=== PATIENT | male | born 1930 | race Caucasian/White ===

== ENCOUNTER → 2016-12-20 | Outpatient (CLI) | payer MEDICARE, BC, OTHER | LOC: MW.CHNEURO 08:28 → MW.CHFP 08:28 | PROVIDERS: ATTEND Emergency Medicine | DX: E78.5 Hyperlipidemia, unspecified (principal); I10 Essential (primary) hypertension; I63.9 Cerebral infarction, unspecified | CPT/HCPCS: 36415; 80061; 82550; 84460 ==

== ENCOUNTER → 2016-12-23 | Outpatient (CLI) | payer MEDICARE, BC, OTHER | LOC: MW.CHFP 14:03 | PROVIDERS: ATTEND Emergency Medicine | DX: I10 Essential (primary) hypertension (principal); R45.1 Restlessness and agitation; F05 Delirium due to known physiological condition; F32.9 Major depressive disorder, single episode, unspecified; H61.22 Impacted cerumen, left ear | CPT/HCPCS: 36415; 69210; 80048; 81001; 85027; G0463 ==

== ENCOUNTER → 2017-01-17 | Outpatient (CLI) | payer MEDICARE, BC, OTHER | LOC: MW.CHNEURO 08:00 | PROVIDERS: ATTEND Psychiatry & Neurology Neuromuscular Medicine | DX: G31.83 Neurocognitive disorder with Lewy bodies (principal); F02.80 Dementia in other diseases classified elsewhere, unspecified severity, without behavioral disturbance, psychotic disturbance, mood disturbance, and anxiety; M54.17 Radiculopathy, lumbosacral region | CPT/HCPCS: 99214 ==

== ENCOUNTER 2017-02-17 13:08 | Emergency (ER) | payer MEDICARE, BC, OTHER ==
[2017-02-17] MEDS ORDERED: Sodium Chloride 0.9% 10 ML Syringe FLUSH PRN (13:32)
[2017-02-17] MEDS ORDERED: Sodium Chloride 0.9% 2.5 ML Syringe FLUSH PRN (13:32)
[2017-02-17] MEDS ORDERED: Diltiazem 25 MG/5 ML SDV IVPUSH ONE (13:33)
--- NOTE | 2017-02-17 13:37 | EDM.PDOC ---
ED HPI GENERAL MEDICAL PROBLEM - General Chief Complaint: Cardiovascular Problem Stated Complaint: CLINIC PT Time Seen by Provider: 02/17/17 13:31 - History of Present Illness INITIAL COMMENTS - FREE TEXT/NARRATIVE: HISTORY AND PHYSICAL: History of present illness: The patient is an 86 rolled male with a history of hypertension dyslipidemia Lewy Body dementia carotid stenosis GERD lumbar spinal stenosis with lumbosacral radiculopathy prostate cancer stroke and prediabetic who presents from family practice clinic and Dr. Alanis with an elevated heart rate. According to the history the patient woke this morning and said to his family he wasn't feeling well and just had generalized weakness. He denies any chest pain shortness of breath focal neurologic changes and was not dizzy or lightheaded. They were walking with him and the daughter who is a family doctor noted that he had a rapid pulse and he said he felt somewhat lightheaded. The clinic was called to get him in for an evaluation and he was seen in the clinic and EKG there which showed a tachycardia with a right bundle branch block and some nonspecific ST-T wave changes with a rate of 147. In my research of the computer I could not find an old EKG and according to the family and the patient they are not sure if he has ever had one. Labs were done as an outpatient which included CBC BMP and troponin which have been reviewed by me. The patient was sent to the ED for IV medications and admission. Currently on my evaluation the patient is denying all systemic complaints such as chest pain shortness of breath abdominal pain nausea vomiting neck or back pain headache or focal extremity weakness or pain. The patient is not a very good historian as he has the dementia. Review of systems: As per history of present illness and below otherwise all systems reviewed and negative. Past medical history: As per history of present illness and as reviewed below otherwise noncontributory. Surgical history: As per history of present illness and as reviewed below otherwise noncontributory. Social history: No reported history of drug or alcohol abuse. Family history: As per history of present illness and as reviewed below otherwise noncontributory. Physical exam: Gen.: Well-developed well-nourished man who is nontoxic and speaking clearly in the ED but is confused. Vital signs been noted by me. He is moving all extremities spontaneously HEENT: Atraumatic, normocephalic, pupils reactive, negative for conjunctival pallor or scleral icterus, mucous membranes moist, throat clear, neck supple, nontender, trachea midline. Lungs: Clear to auscultation, breath sounds equal bilaterally, chest nontender. No worker breathing or sensory muscle use Heart: S1S2, regular rhythm but tachycardic rate, negative for clicks, rubs, or JVD. Abdomen: Soft, nondistended, nontender. Negative for masses or hepatosplenomegaly. Negative for costovertebral tenderness. Pelvis: Stable nontender. Genitourinary: Deferred. Rectal: Deferred. Extremities: Atraumatic, negative for cords or calf pain. Neurovascular unremarkable. No pedal edema or leg asymmetry Neuro: Awake, alert, oriented. Cranial nerves II through XII unremarkable. Cerebellum unremarkable. Motor and sensory unremarkable throughout. Exam nonfocal. Diagnostics: EKG was performed in the clinic, CBC BMP and troponin will performed in the clinic and results were reviewed by me, INR UA and chest x-ray will be performed in the ED; repeat EKG and troponin Therapeutics: IV O2 monitor gentle IV fluids Please note that I asked the nurse to draw up a small dose of Lopressor in an effort to slow the patient's heart rate down and get a better look at the underlying rhythm and prior to us being able to do that the patient converted his rhythm to a regular rhythm rate of 70s. I did discuss this with the primary care provider as well as the family and we will continue with our observation and management and plan for admission. 1345: Case was discussed with our hospitalist who will see the patient and plan for observation admission. 1515: Second troponin level was discussed with the patient and daughter as well as our hospitalist. He is in route to have a dialogue with the family about the best approach to this patient. The concern that the family has that the patient gets very confused with his dementia and sundowning and becomes very agitated so they would like to avoid the patient being placed in a new environment with this admission. Please also note that the clinic was able to find an old EKG that was performed in 2007; this did not show any right bundle branch block or any tachycardia. 1545: Dr Pittman has spoken with the patient and family at bedside at length and they preferred to defer admission to follow the troponin and to monitor his rhythm. They will prefer to go home and follow-up with Dr. Vera. I've given him a prescription for a Holter monitor to be placed on Monday and that they will be called for a follow-up appointment with Dr. Vera. will be doing a consult , but the family understands risks and benefits of admission versus going home and accepts all the possible risks of going home Impression: Episode of arrhythmia resolves spontaneously, elevated troponin asymptomatic stable Definitive disposition and diagnosis as appropriate pending reevaluation and review of above. - Related Data Allergies Allergy/AdvReac Type Severity Reaction Status Date / Time No Known Allergies Allergy Verified 02/17/17 13:24 Home Meds: Home Meds Aspirin [Gely Chewable] 81 mg PO DAILY 02/23/14 [History] Omeprazole 20 mg PO DAILY 02/23/14 [History] Rosuvastatin [Crestor] 5 mg PO ASDIRECTED 02/23/14 [History] Cholecalciferol (Vitamin D3) [Vitamin D3] 1,000 units PO DAILY 06/10/15 [History ] Moexipril/Hydrochlorothiazide [Moexipril-HCTZ 15-25 MG] 1 each PO DAILY [History] Rivastigmine [Exelon] 9.5 mg TRDERM DAILY 06/10/15 [History] Clobetasol [Clobetasol Propionate 0.05%] 30 gm TOP BID 02/17/17 [History] Latanoprost [Xalatan 0.005% Ophth Soln] 2.5 ml EYEBOTH BEDTIME 02/17/17 [History ] Past Medical History - Past Health History Medical/Surgical History: Denies Medical/Surgical History HEENT History: Reports: None Cardiovascular History: Reports: High Cholesterol, Hypertension, Other (See Below) Other Cardiovascular History: carotid stenosis Respiratory History: Reports: None Gastrointestinal History: Reports: None Genitourinary History: Reports: None Musculoskeletal History: Reports: None Neurological History: Reports: Other (See Below) Other Neuro History: Lewy Body Dementia Psychiatric History: Reports: Other (See Below) Other Psychiatric History: Lewy Body Dementia Endocrine/Metabolic History: Reports: None Hematologic History: Reports: None Immunologic History: Reports: None Oncologic (Cancer) History: Reports: None Dermatologic History: Reports: None - Infectious Disease History Infectious Disease History: Reports: Chicken Pox - Past Surgical History Cardiovascular Surgical History: Reports: Carotid Stents Social & Family History - Family History Family Medical History: Noncontributory - Tobacco Use Smoking Status *Q: Never Smoker Years of Tobacco use: 15 - Alcohol Use Days Per Week of Alcohol Use: 4 Number of Drinks Per Day: 4 Total Drinks Per Week: 16 - Recreational Drug Use Recreational Drug Use: No Drug Use in Last 12 Months: No ED ROS GENERAL - Review of Systems Review Of Systems: ROS reveals no pertinent complaints other than HPI. ED EXAM, GENERAL - Physical Exam Exam: See Below (See dictation) Course - Vital Signs Last Recorded V/S: Last Vital Signs Temp 36.3 C 02/17/17 13:24 Pulse 139 H 02/17/17 13:24 Resp 18 02/17/17 14:09 BP 99/65 02/17/17 14:09 Pulse Ox 98 02/17/17 14:09 - Orders/Labs/Meds Orders: Active Orders 24 hr Category Date Time Status Cardiac Monitoring [RC] . DIRECTED Care 02/17/17 13:31 Active EKG Documentation Completion [RC] STAT Care 02/17/17 13:52 Active Notify Provider Consults [RC] ASDIRECTED Care 02/17/17 15:43 Ordered Oxygen Therapy, ED [RC] ASDIRECTED Care 02/17/17 13:31 Active Pulse Oximetry [RC] ASDIRECTED Care 02/17/17 13:31 Active Consult to Physician [CONS] Stat Cons 02/17/17 15:41 Ordered Chest 1V Frontal [CR] Stat Exams 02/17/17 13:32 Taken Sodium Chloride 0.9% [Normal Saline] 1,000 ml Med 02/17/17 13:45 Active IV STAT Sodium Chloride 0.9% [Saline Flush] Med 02/17/17 13:32 Active 10 ml FLUSH ASDIRECTED PRN Sodium Chloride 0.9% [Saline Flush] Med 02/17/17 13:32 Active 2.5 ml FLUSH ASDIRECTED PRN Saline Lock Insert [OM.PC] Stat Oth 02/17/17 13:31 Ordered Medication Orders Sodium Chloride (Normal Saline) 1,000 mls @ 50 mls/hr IV STAT ANNALEE Last Infusion: 02/17/17 13:58 Dose: 50 mls/hr Admin: 02/17/17 13:45 Dose: 999 mls/hr Sodium Chloride (Saline Flush) 10 ml FLUSH ASDIRECTED PRN PRN Reason: Keep Vein Open Sodium Chloride (Saline Flush) 2.5 ml FLUSH ASDIRECTED PRN PRN Reason: Keep Vein Open Labs: Laboratory Tests 02/17/17 02/17/17 Range/Units 13:03 14:25 INR 0.96 (0.86-1.11) Troponin I 0.31 H* (0.0-0.29) NG/ML Meds: Medications Generic Name Dose Route Start Last Admin Trade Name Freq PRN Reason Stop Dose Admin Sodium Chloride 1,000 mls @ 50 mls/hr 02/17/17 13:45 02/17/17 13:58 Normal Saline IV 50 mls/hr STAT ANNALEE Infusion Sodium Chloride 10 ml 02/17/17 13:32 Saline Flush FLUSH ASDIRECTED PRN Keep Vein Open Sodium Chloride 2.5 ml 02/17/17 13:32 Saline Flush FLUSH ASDIRECTED PRN Keep Vein Open Discontinued Medications Generic Name Dose Route Start Last Admin Trade Name Freq PRN Reason Stop Dose Admin Diltiazem HCl 5 mg 02/17/17 13:33 02/17/17 14:01 Diltiazem IVPUSH 02/17/17 13:34 Not Given ONETIME ONE Metoprolol Tartrate 5 mg 02/17/17 13:40 02/17/17 14:01 Lopressor IVPUSH 02/17/17 13:41 Not Given ONETIME ONE Departure - Departure Time of Disposition: 15:57 Disposition: Home, Self-Care 01 Condition: Good Clinical Impression: Elevated troponin Arrhythmia Qualifiers: Arrhythmia type: unspecified cardiac arrhythmia Qualified Code(s): I49.9 - Cardiac arrhythmia, unspecified Forms: ED Department Discharge Additional Instructions: The following information is given to patients seen in the emergency department who are being discharged to home. This information is to outline your options for follow-up care. We provide all patients seen in our emergency department with a follow-up referral. The need for follow-up, as well as the timing and circumstances, are variable depending upon the specifics of your emergency department visit. If you don't have a primary care physician on staff, we will provide you with a referral. We always advise you to contact your personal physician following an emergency department visit to inform them of the circumstance of the visit and for follow-up with them and/or the need for any referrals to a consulting specialist. The emergency department will also refer you to a specialist when appropriate. This referral assures that you have the opportunity for followup care with a specialist. All of these measure are taken in an effort to provide you with optimal care, which includes your followup. Under all circumstances we always encourage you to contact your private physician who remains a resource for coordinating your care. When calling for followup care, please make the office aware that this follow-up is from your recent emergency room visit. If for any reason you are refused follow-up, please contact the [facility] emergency department at and ask to speak to the emergency department charge nurse. [facility] Primary care- Internal Medicine and Family [address] [address] Please go and have a Holter monitor placed on Monday as we discussed. Will be contacted by the clinic for follow-up appointment with Dr. Vera but if you do not hear from them please call the clinic and get an appointment for early next week. Return to ER as needed and as discussed in please take one baby aspirin daily until you are followed up with the clinic. - My Orders Last 24 Hours: My Active Orders 02/17/17 13:31 Cardiac Monitoring [RC] . DIRECTED Oxygen Therapy, ED [RC] ASDIRECTED Pulse Oximetry [RC] ASDIRECTED Saline Lock Insert [OM.PC] Stat 02/17/17 13:32 Chest 1V Frontal [CR] Stat Sodium Chloride 0.9% [Saline Flush] 10 ml FLUSH ASDIRECTED PRN Sodium Chloride 0.9% [Saline Flush] 2.5 ml FLUSH ASDIRECTED PRN 02/17/17 13:45 Sodium Chloride 0.9% [Normal Saline] 1,000 ml IV STAT 02/17/17 13:52 EKG Documentation Completion [RC] STAT 02/17/17 15:41 Consult to Physician [CONS] Stat 02/17/17 15:43 Notify Provider Consults [RC] ASDIRECTED - Assessment/Plan Last 24 Hours: My Active Orders 02/17/17 13:31 Cardiac Monitoring [RC] . DIRECTED Oxygen Therapy, ED [RC] ASDIRECTED Pulse Oximetry [RC] ASDIRECTED Saline Lock Insert [OM.PC] Stat 02/17/17 13:32 Chest 1V Frontal [CR] Stat Sodium Chloride 0.9% [Saline Flush] 10 ml FLUSH ASDIRECTED PRN Sodium Chloride 0.9% [Saline Flush] 2.5 ml FLUSH ASDIRECTED PRN 02/17/17 13:45 Sodium Chloride 0.9% [Normal Saline] 1,000 ml IV STAT 02/17/17 13:52 EKG Documentation Completion [RC] STAT 02/17/17 15:41 Consult to Physician [CONS] Stat 02/17/17 15:43 Notify Provider Consults [RC] ASDIRECTED
[2017-02-17] MEDS ORDERED: Metoprolol Tartrate 5 MG/5 ML SDV IVPUSH ONE (13:40)
[2017-02-17] MEDS ORDERED: Sodium Chloride 0.9% 1,000 ML IV SCH (13:45)
--- NOTE | 2017-02-17 16:27 | PCM.SN ---
- Free Text/Narrative Note: I was asked to see this patient who presented from Dr Vera's office with what appeared to be a narrow complex tachycardia. He had spontaneous conversion to normal sinus rhythm whilst in the ED. He had a slight elevation in his troponin. It appears that this was likely atrial fibrillation that converted to sinus rhythm. He has had no chest pain or dyspnea. He states that he now feels normal. I discussed the case with he and his and his daughter who is also a physician. I advised that usually we would recommend transfer to a facility with invasive cardiology. He and his family decided to go home. I also offered admission to our facility. He again declines and verbalizes understanding of the fact that he could be at risk of . His and daughter are at the bedside and agree to support his decision. Jose Pittman MD
--- NOTE | 2017-02-17 17:10 | CR ---
EXAM DATE: 02/17/17 PATIENT'S AGE: 86 Patient: HOLLY BUSTAMANTE Facility: [place], [place] Site . Site : [id number] Study: XRay Chest [id number]/23/2017 1:53:03 PM Ordering Physician: Nell Chen Final Report: INDICATION: Chest pain, shortness of breath. COMPARISON: none TECHNIQUE: Portable AP erect chest performed at 1:36 p.m. FINDINGS: The lungs are clear. There is no evidence of pneumothorax. The heart, mediastinum and pulmonary vessels are of normal size. There is no evidence of pleural fluid. IMPRESSION: Negative chest. Dictated by Zoltan Go MD @ Feb 17 2017 2:06PM (Electronic Signature) Report Signed by Proxy. HEATHER
[2017-02-17 19:58] VITALS: BP 132/69
== END 2017-02-17 16:23 | disposition home or self-care (01) ==
LOC: MW.ED 13:08
DX: I49.9 Cardiac arrhythmia, unspecified (principal); R79.89 Other specified abnormal findings of blood chemistry; I10 Essential (primary) hypertension; E78.00 Pure hypercholesterolemia, unspecified; G31.83 Neurocognitive disorder with Lewy bodies; F02.80 Dementia in other diseases classified elsewhere, unspecified severity, without behavioral disturbance, psychotic disturbance, mood disturbance, and anxiety; Z95.5 Presence of coronary angioplasty implant and graft; Z79.82 Long term (current) use of aspirin; Z79.899 Other long term (current) drug therapy; I63.9 Cerebral infarction, unspecified; I65.29 Occlusion and stenosis of unspecified carotid artery; R53.1 Weakness; I47.2 Ventricular tachycardia
CPT/HCPCS: 36415; 71010; 80048; 84443; 84484; 85025; 85610; 93005; 96360; 96361; 99285; G0463; J7040

== ENCOUNTER 2017-06-18 17:53 | Day surgery (SDC) | payer MEDICARE, BC, OTHER ==
[2017-06-18] MEDS ORDERED: Glucagon,Human Recombinant 1 MG Vial IVPUSH ONE ×2 (18:11→19:04)
--- NOTE | 2017-06-18 18:14 | EDM.PDOC ---
ED HPI GENERAL MEDICAL PROBLEM - General Chief Complaint: Abdominal Pain Stated Complaint: PT HAS STOMACH PAINS Time Seen by Provider: 06/18/17 18:12 Source of Information: Reports: Patient, Family History Limitations: Reports: No Limitations - History of Present Illness INITIAL COMMENTS - FREE TEXT/NARRATIVE: History of present illness: [87-year-old male presenting with complaints of feeling as if food has been trapped at the bottom of his esophagus at the juncture of the stomach. Patient has had this problem in the past and has been seen in this ED for 3 other occasions received IV glucagon and obtain resolution will keep this treatment again for this gentleman to see if we can facilitate him mobilizing the food bolus.] Review of systems: As per history of present illness and below otherwise all systems reviewed and negative. Past medical history: As per history of present illness and as reviewed below otherwise noncontributory. Surgical history: As per history of present illness and as reviewed below otherwise noncontributory. Social history: No reported history of drug or alcohol abuse. Family history: As per history of present illness and as reviewed below otherwise noncontributory. Physical exam: HEENT: Atraumatic, normocephalic, pupils reactive, negative for conjunctival pallor or scleral icterus, mucous membranes moist, throat clear, neck supple, nontender, trachea midline. Lungs: Clear to auscultation, breath sounds equal bilaterally, chest nontender. Heart: S1S2, regular, negative for clicks, rubs, or JVD. Abdomen: Soft, nondistended, nontender. Negative for masses or hepatosplenomegaly. Negative for costovertebral tenderness. Pelvis: Stable nontender. Genitourinary: Deferred. Rectal: Deferred. Extremities: Atraumatic, negative for cords or calf pain. Neurovascular unremarkable. Neuro: Awake, alert, oriented. Cranial nerves II through XII unremarkable. Cerebellum unremarkable. Motor and sensory unremarkable throughout. Exam nonfocal. Glucagon IV push given 2 ineffective in assiting bolus to pass. Surgeon on-call is Dr. Begum made aware of the patient, she is coming in to evaluate patient at bedside. Diagnostics: [] Therapeutics: [Glucagon IVP X2] Impression: [#1 trapped fluid bolus] Plan: [Patient taken to or by Dr. Tan for resolution of food bolus] Definitive disposition and diagnosis as appropriate pending reevaluation and review of above. epigastrci area Pain Score (Numeric/FACES): 2 - Related Data Allergies Allergy/AdvReac Type Severity Reaction Status Date / Time No Known Allergies Allergy Verified 06/18/17 18:03 Home Meds: Home Meds Aspirin [Gely Chewable] 81 mg PO DAILY 02/23/14 [History] Omeprazole 20 mg PO DAILY 02/23/14 [History] Rosuvastatin [Crestor] 5 mg PO ASDIRECTED 02/23/14 [History] Cholecalciferol (Vitamin D3) [Vitamin D3] 1,000 units PO DAILY 06/10/15 [History ] Moexipril/Hydrochlorothiazide [Moexipril-HCTZ 15-25 MG] 1 each PO DAILY [History] Rivastigmine [Exelon] 9.5 mg TRDERM DAILY 06/10/15 [History] Clobetasol [Clobetasol Propionate 0.05%] 30 gm TOP BID 02/17/17 [History] Latanoprost [Xalatan 0.005% Ophth Soln] 2.5 ml EYEBOTH BEDTIME 02/17/17 [History ] Past Medical History - Past Health History Medical/Surgical History: Denies Medical/Surgical History HEENT History: Reports: None Cardiovascular History: Reports: High Cholesterol, Hypertension, Other (See Below) Other Cardiovascular History: carotid stenosis Respiratory History: Reports: None Gastrointestinal History: Reports: None Genitourinary History: Reports: None Musculoskeletal History: Reports: None Other Musculoskeletal History: lumbar spinal stenosis Neurological History: Reports: Other (See Below) Other Neuro History: Lewy Body Dementia Psychiatric History: Reports: Other (See Below) Other Psychiatric History: Lewy Body Dementia Endocrine/Metabolic History: Reports: None Other Endocrine/Metabolic History: prediabetes Hematologic History: Reports: None Immunologic History: Reports: None Oncologic (Cancer) History: Reports: None Dermatologic History: Reports: None - Infectious Disease History Infectious Disease History: Reports: Chicken Pox - Past Surgical History Cardiovascular Surgical History: Reports: Carotid Stents Social & Family History - Family History Family Medical History: Noncontributory - Tobacco Use Smoking Status *Q: Never Smoker Years of Tobacco use: 15 Used Tobacco, but Quit: Yes Month Tobacco Last Used: 40 years - Caffeine Use Caffeine Use: Reports: Coffee Caffeine Use Comment: 2 cups daily - Alcohol Use Days Per Week of Alcohol Use: 4 Number of Drinks Per Day: 4 Total Drinks Per Week: 16 - Recreational Drug Use Recreational Drug Use: No Drug Use in Last 12 Months: No ED ROS GENERAL - Review of Systems Review Of Systems: See Below (History of present illness) ED EXAM, GENERAL - Physical Exam Exam: See Below (See history of present illness) Course - Vital Signs Last Recorded V/S: Last Vital Signs Temp 36.8 C 06/18/17 20:28 Pulse 73 06/18/17 20:28 Resp 20 06/18/17 20:28 BP 148/76 H 06/18/17 20:28 Pulse Ox 95 06/18/17 20:28 - Orders/Labs/Meds Orders: Active Orders 24 hr Category Date Time Status Patient Status [ADT] Routine ADT 06/18/17 20:47 Active EKG 12 Lead [EKG Documentation Completion] [RC] STAT Care 06/18/17 20:40 Active Verify Patient Consent Obtain [RC] ASDIRECTED Care 06/18/17 20:47 Active Sodium Chloride 0.9% [Normal Saline] 1,000 ml Med 06/18/17 21:00 Active IV ASDIRECTED Sodium Chloride 0.9% [Saline Flush] Med 06/18/17 20:47 Active 10 ml FLUSH ASDIRECTED PRN Sodium Chloride 0.9% [Saline Flush] Med 06/18/17 20:47 Active 2.5 ml FLUSH ASDIRECTED PRN Peripheral IV Insertion Adult [OM.PC] Routine Oth 06/18/17 20:47 Ordered Resuscitation Status Routine Resus Stat 06/18/17 20:47 Ordered Medication Orders Sodium Chloride (Normal Saline) 1,000 mls @ 100 mls/hr IV ASDIRECTED ANNALEE Sodium Chloride (Saline Flush) 10 ml FLUSH ASDIRECTED PRN PRN Reason: Keep Vein Open Sodium Chloride (Saline Flush) 2.5 ml FLUSH ASDIRECTED PRN PRN Reason: Keep Vein Open Labs: Laboratory Tests 06/18/17 06/18/17 Range/Units 18:25 18:25 WBC 8.13 (4.0-11.0) K/uL RBC 4.73 (4.50-5.90) M/uL Hgb 14.4 (13.0-17.0) g/dL Hct 41.1 (38.0-50.0) % MCV 86.9 (80.0-98.0) fL MCH 30.4 (27.0-32.0) pg MCHC 35.0 (31.0-37.0) g/dL RDW Std Deviation 44.8 (28.0-62.0) fl RDW Coeff of Amita 14 (11.0-15.0) % Plt Count 132 L (150-400) K/uL MPV 11.40 (7.40-12.00) fL Nucleated RBC % 0.0 /100WBC Nucleated RBCs # 0 K/uL Sodium 140 (136-146) mmol/L Potassium 4.4 (3.5-5.1) mmol/L Chloride 107 (98-110) mmol/L Carbon Dioxide 23 (21-31) mmol/L BUN 22 (6.0-23.0) mg/dL Creatinine 1.1 (0.6-1.5) mg/dL Est Cr Clr Drug Dosing 48.85 mL/min Estimated GFR (MDRD) > 60.0 ml/min Glucose 129 H (60-110) mg/dL Calcium 9.5 (8.8-10.8) mg/dL Meds: Medications Generic Name Dose Route Start Last Admin Trade Name Freq PRN Reason Stop Dose Admin Sodium Chloride 1,000 mls @ 100 mls/hr 06/18/17 21:00 Normal Saline IV ASDIRECTED ANNALEE Sodium Chloride 10 ml 06/18/17 20:47 Saline Flush FLUSH ASDIRECTED PRN Keep Vein Open Sodium Chloride 2.5 ml 06/18/17 20:47 Saline Flush FLUSH ASDIRECTED PRN Keep Vein Open Discontinued Medications Generic Name Dose Route Start Last Admin Trade Name Freq PRN Reason Stop Dose Admin Glucagon 2 mg 06/18/17 18:11 06/18/17 18:31 Glucagen IVPUSH 06/18/17 18:12 2 mg ONETIME ONE Administration Glucagon 1 mg 06/18/17 19:04 06/18/17 19:28 Glucagen IVPUSH 06/18/17 19:05 1 mg ONETIME ONE Administration Departure - Departure Time of Disposition: 21:10 Disposition: DC/Tfer to Other 70 Condition: Good Clinical Impression: Food impaction of esophagus - Discharge Information
[2017-06-18] MEDS ORDERED: Sodium Chloride 0.9% 10 ML Syringe FLUSH PRN (20:47)
[2017-06-18] MEDS ORDERED: Sodium Chloride 0.9% 2.5 ML Syringe FLUSH PRN (20:47)
[2017-06-18 20:52] LABS: CHLORIDE,CL 107 mmol/L (98-110); SODIUM,NA 140 mmol/L (136-146)
--- NOTE | 2017-06-18 20:59 | PCM.HP ---
H&P History of Present Illness - General Date of Service: 06/18/17 Admit Problem/Dx: Admission Diagnosis/Problem Admission Diagnosis/Problem Impacted foreign body in esophagus Source of Information: Patient History Limitations: Reports: No Limitations - History of Present Illness Initial Comments - Free Text/Narative: patient is a 87 year old male who presents with an impacted food bolus. He has had issues with this for the past 5-6 years. He was scoped before and found to have a small hiatal hernia. He has issues with chronic GERD. He has had no further workup and tries to be careful with the food he eats. He has had 3-4 other obstructions in the past that were resolved with glucagon. He received it twice today with no relief. He denies any chest pain, fevers, chills, or shortness of breath. He was eating at a [employer] pot luck and ate too large a piece of chicken. epigastrci area Pain Score (Numeric/FACES): 2 - Related Data Allergies/Adverse Reactions: Allergies Allergy/AdvReac Type Severity Reaction Status Date / Time No Known Allergies Allergy Verified 06/18/17 18:03 Home Medications: Home Meds Aspirin [Gely Chewable] 81 mg PO DAILY 02/23/14 [History] Omeprazole 20 mg PO DAILY 02/23/14 [History] Rosuvastatin [Crestor] 5 mg PO ASDIRECTED 02/23/14 [History] Cholecalciferol (Vitamin D3) [Vitamin D3] 1,000 units PO DAILY 06/10/15 [History ] Moexipril/Hydrochlorothiazide [Moexipril-HCTZ 15-25 MG] 1 each PO DAILY [History] Rivastigmine [Exelon] 9.5 mg TRDERM DAILY 06/10/15 [History] Clobetasol [Clobetasol Propionate 0.05%] 30 gm TOP BID 02/17/17 [History] Latanoprost [Xalatan 0.005% Ophth Soln] 2.5 ml EYEBOTH BEDTIME 02/17/17 [History ] Past Medical History - Past Health History Medical/Surgical History: Denies Medical/Surgical History HEENT History: Reports: None Cardiovascular History: Reports: High Cholesterol, Hypertension, Other (See Below) Other Cardiovascular History: carotid stenosis Respiratory History: Reports: None Gastrointestinal History: Reports: None Genitourinary History: Reports: None Musculoskeletal History: Reports: None Other Musculoskeletal History: lumbar spinal stenosis Neurological History: Reports: Other (See Below) Other Neuro History: Lewy Body Dementia Psychiatric History: Reports: Other (See Below) Other Psychiatric History: Lewy Body Dementia Endocrine/Metabolic History: Reports: None Other Endocrine/Metabolic History: prediabetes Hematologic History: Reports: None Immunologic History: Reports: None Oncologic (Cancer) History: Reports: None Dermatologic History: Reports: None - Infectious Disease History Infectious Disease History: Reports: Chicken Pox - Past Surgical History Cardiovascular Surgical History: Reports: Carotid Stents GI Surgical History: Reports: Hernia, Inguinal Social & Family History - Family History Family Medical History: Noncontributory - Tobacco Use Smoking Status *Q: Never Smoker Years of Tobacco use: 15 Used Tobacco, but Quit: Yes Month Tobacco Last Used: 40 years - Caffeine Use Caffeine Use: Reports: Coffee Caffeine Use Comment: 2 cups daily - Alcohol Use Days Per Week of Alcohol Use: 4 Number of Drinks Per Day: 4 Total Drinks Per Week: 16 - Recreational Drug Use Recreational Drug Use: No Drug Use in Last 12 Months: No H&P Review of Systems - Review of Systems: Review Of Systems: ROS reveals no pertinent complaints other than HPI. Exam - Exam Exam: See Below - Vital Signs Vital Signs: Last Vital Signs Temp 36.8 C 06/18/17 20:28 Pulse 73 06/18/17 20:28 Resp 20 06/18/17 20:28 BP 148/76 H 06/18/17 20:28 Pulse Ox 95 06/18/17 20:28 Weight: 79.6 kg - Exam General: Alert, Oriented HEENT: Conjunctiva Clear, EACs Clear, Mucosa Moist & [place], Nares Patent, Normal Nasal Septum, Posterior Pharynx Clear, Pupils Equal, Pupils Reactive Neck: Supple, Trachea Midline Lungs: Clear to Auscultation, Normal Respiratory Effort Cardiovascular: Regular Rate, Regular Rhythm GI/Abdominal Exam: Soft, Non-Tender, No Organomegaly, No Distention, No Abnormal Bruit Back Exam: Normal Inspection *Q Meaningful Use (ADM) - VTE *Q VTE Criteria *Q: - Stroke *Q Stroke Criteria *Q: - AMI *Q AMI Criteria *Q: - Problem List (1) Food impaction of esophagus SNOMED Code(s): 9985980 ICD Code: T18.128A - FOOD IN ESOPHAGUS CAUSING OTHER INJURY, INITIAL ENCOUNTER Status: Acute Current Visit: Yes Problem List Initiated/Reviewed/Updated: Yes Orders Last 24hrs: Active Orders 24 hr Category Date Time Status Patient Status [ADT] Routine ADT 06/18/17 20:47 Ordered EKG 12 Lead [EKG Documentation Completion] [RC] STAT Care 06/18/17 20:40 Ordered Verify Patient Consent Obtain [RC] ASDIRECTED Care 06/18/17 20:47 Ordered BASIC METABOLIC PANEL,BMP [CHEM] Stat Lab 06/18/17 20:40 Ordered CBC W/O DIFF,HEMOGRAM [HEME] Stat Lab 06/18/17 20:39 Ordered Sodium Chloride 0.9% [Normal Saline] 1,000 ml Med 06/18/17 21:00 Ordered IV ASDIRECTED Sodium Chloride 0.9% [Saline Flush] Med 06/18/17 20:47 Ordered 10 ml FLUSH ASDIRECTED PRN Sodium Chloride 0.9% [Saline Flush] Med 06/18/17 20:47 Ordered 2.5 ml FLUSH ASDIRECTED PRN Peripheral IV Insertion Adult [OM.PC] Routine Oth 06/18/17 20:47 Ordered Resuscitation Status Routine Resus Stat 06/18/17 20:47 Ordered Medication Orders Sodium Chloride (Normal Saline) 1,000 mls @ 100 mls/hr IV ASDIRECTED ANNALEE Sodium Chloride (Saline Flush) 10 ml FLUSH ASDIRECTED PRN PRN Reason: Keep Vein Open Sodium Chloride (Saline Flush) 2.5 ml FLUSH ASDIRECTED PRN PRN Reason: Keep Vein Open Assessment/Plan Comment:: The patient and I discussed the need for intubated and removal of the food bolus with an EGD. We discussed the procedure and expected perioperative course. We discussed the risks including bleeding, infection, and/or perforation. The patient and his family verbalized understanding and wish to proceed.
[2017-06-18] MEDS ORDERED: Sodium Chloride 0.9% 1,000 ML IV SCH (21:00)
--- NOTE | 2017-06-18 21:12 | PCM.PREANE ---
Preanesthetic Assessment - Procedure Proposed Procedure: EGD - Anesthesia/Transfusion/Family Hx Anesthesia History: Prior Anesthesia Without Reaction Other Type of Anesthesia Reaction Comment: Denies any known problems Family History of Anesthesia Reaction: No Transfusion History: No Prior Transfusion(s) - Review of Systems General: No Symptoms Pulmonary: No Symptoms Cardiovascular: No Symptoms, Other Gastrointestinal: Difficulty Swallowing, Other Neurological: No Symptoms Other: Reports: None - Physical Assessment NPO Status Date: 06/18/17 NPO Status Time: 14:00 O2 Sat by Pulse Oximetry: 95 Respiratory Rate: 20 Vital Signs: Last Vital Signs Temp 36.8 C 06/18/17 20:28 Pulse 73 06/18/17 20:28 Resp 20 06/18/17 20:28 BP 148/76 H 06/18/17 20:28 Pulse Ox 95 06/18/17 20:28 Height: 1.78 m Weight: 79.6 kg ASA Class: 2E Mental Status: Alert & Oriented x3 Airway Class: Mallampati = 2 Dentition: Reports: Normal Dentition Thyro-Mental Finger Breadths: 3 Mouth Opening Finger Breadths: 3 ROM/Head Extension: Full Lungs: Clear to Auscultation Cardiovascular: Regular Rate - Lab Values: Laboratory Last Values WBC 8.13 K/uL (4.0-11.0) 06/18/17 18:25 RBC 4.73 M/uL (4.50-5.90) 06/18/17 18:25 Hgb 14.4 g/dL (13.0-17.0) 06/18/17 18:25 Hct 41.1 % (38.0-50.0) 06/18/17 18:25 MCV 86.9 fL (80.0-98.0) 06/18/17 18:25 MCH 30.4 pg (27.0-32.0) 06/18/17 18:25 MCHC 35.0 g/dL (31.0-37.0) 06/18/17 18:25 RDW Std Deviation 44.8 fl (28.0-62.0) 06/18/17 18:25 RDW Coeff of Amita 14 % (11.0-15.0) 06/18/17 18:25 Plt Count 132 K/uL (150-400) L 06/18/17 18:25 MPV 11.40 fL (7.40-12.00) 06/18/17 18:25 Nucleated RBC % 0.0 /100WBC 06/18/17 18:25 Nucleated RBCs # 0 K/uL 06/18/17 18:25 Sodium 140 mmol/L (136-146) 06/18/17 18:25 Potassium 4.4 mmol/L (3.5-5.1) 06/18/17 18:25 Chloride 107 mmol/L (98-110) 06/18/17 18:25 Carbon Dioxide 23 mmol/L (21-31) 06/18/17 18:25 BUN 22 mg/dL (6.0-23.0) 06/18/17 18:25 Creatinine 1.1 mg/dL (0.6-1.5) 06/18/17 18:25 Est Cr Clr Drug Dosing 48.85 mL/min 06/18/17 18:25 Estimated GFR (MDRD) > 60.0 ml/min 06/18/17 18:25 Glucose 129 mg/dL (60-110) H 06/18/17 18:25 Calcium 9.5 mg/dL (8.8-10.8) 06/18/17 18:25 - Allergies Allergies/Adverse Reactions: Allergies Allergy/AdvReac Type Severity Reaction Status Date / Time No Known Allergies Allergy Verified 06/18/17 18:03 - Blood Product(s) Available: None - Anesthesia Plan Free Text/Narrative:: RSI with ET Pre-Op Medication Ordered: None - Acknowledgements Anesthesia Type Planned: General Anesthesia Pt an Appropriate Candidate for the Planned Anesthesia: Yes Alternatives and Risks of Anesthesia Discussed w Pt/Guardian: Yes Pt/Guardian Understands and Agrees with Anesthesia Plan: Yes Additional Comments: Pt has had history of food bolus's getting stuck in esophagus. Usually passes with glucgon. Give x2 with no resolve. Also has history of Tachycardia. None for over 2 months EKG noted. Discussed procecure with patient, questions answered, wishes to procede. PreAnesthesia Questionnaire - Past Health History Medical/Surgical History: Denies Medical/Surgical History HEENT History: Reports: None Cardiovascular History: Reports: High Cholesterol, Hypertension, Other (See Below) Other Cardiovascular History: carotid stenosis Respiratory History: Reports: None Gastrointestinal History: Reports: None Genitourinary History: Reports: None Musculoskeletal History: Reports: None Other Musculoskeletal History: lumbar spinal stenosis Neurological History: Reports: Other (See Below) Other Neuro History: Lewy Body Dementia Psychiatric History: Reports: Other (See Below) Other Psychiatric History: Lewy Body Dementia Endocrine/Metabolic History: Reports: None Other Endocrine/Metabolic History: prediabetes Hematologic History: Reports: None Immunologic History: Reports: None Oncologic (Cancer) History: Reports: None Dermatologic History: Reports: None - Infectious Disease History Infectious Disease History: Reports: Chicken Pox - Past Surgical History Cardiovascular Surgical History: Reports: Carotid Stents GI Surgical History: Reports: Hernia, Inguinal - SUBSTANCE USE Smoking Status *Q: Never Smoker Days Per Week of Alcohol Use: 4 Number of Drinks Per Day: 4 Total Drinks Per Week: 16 Recreational Drug Use History: No - HOME MEDS Home Medications: Home Meds Aspirin [Gely Chewable] 81 mg PO DAILY 02/23/14 [History] Omeprazole 20 mg PO DAILY 02/23/14 [History] Rosuvastatin [Crestor] 5 mg PO ASDIRECTED 02/23/14 [History] Cholecalciferol (Vitamin D3) [Vitamin D3] 1,000 units PO DAILY 06/10/15 [History ] Moexipril/Hydrochlorothiazide [Moexipril-HCTZ 15-25 MG] 1 each PO DAILY [History] Rivastigmine [Exelon] 9.5 mg TRDERM DAILY 06/10/15 [History] Clobetasol [Clobetasol Propionate 0.05%] 30 gm TOP BID 02/17/17 [History] Latanoprost [Xalatan 0.005% Ophth Soln] 2.5 ml EYEBOTH BEDTIME 02/17/17 [History ] - CURRENT (IN HOUSE) MEDS Current Meds: Current Medications Sodium Chloride (Normal Saline) 1,000 mls @ 100 mls/hr IV ASDIRECTED ANNALEE Sodium Chloride (Saline Flush) 10 ml FLUSH ASDIRECTED PRN PRN Reason: Keep Vein Open Sodium Chloride (Saline Flush) 2.5 ml FLUSH ASDIRECTED PRN PRN Reason: Keep Vein Open Discontinued Medications Glucagon (Glucagen) 2 mg IVPUSH ONETIME ONE Stop: 06/18/17 18:12 Last Admin: 06/18/17 18:31 Dose: 2 mg Glucagon (Glucagen) 1 mg IVPUSH ONETIME ONE Stop: 10/22/17 19:05 Last Admin: 06/18/17 19:28 Dose: 1 mg
[2017-06-18] MEDS ORDERED: Propofol 200 MG/20 ML SDV ONE (21:20)
[2017-06-18] MEDS ORDERED: Midazolam 1 MG/ML 2 ML SDV ONE (21:20)
[2017-06-18] MEDS ORDERED: Succinylcholine/Normal Saline 200 MG/10 ML Syringe ONE (21:20)
[2017-06-18] MEDS ORDERED: Ondansetron 4 MG/2 ML SDV ONE (21:20)
[2017-06-18] MEDS ORDERED: fentaNYL 100 MCG/2 ML SDV ONE (21:20)
--- NOTE | 2017-06-18 22:08 | PCM.OPNOTE ---
- General Post-Op/Procedure Note Date of Surgery/Procedure: 06/18/17 Operative Procedure(s): EGD with removal of impacted food bolus Findings: Large piece of meat impacted at 40cm. Unable to pass scope past GE junction due to inflammation. Small hiatal hernia Pre Op Diagnosis: Impacted food bolus Post-Op Diagnosis: same Anesthesia Technique: General ET Tube Primary Surgeon: Suellen Begum Condition: Good
--- NOTE | 2017-06-18 22:18 | PCM.POSTAN ---
POST ANESTHESIA ASSESSMENT - MENTAL STATUS Mental Status: Oriented - VITAL SIGNS Pulse Rate: 96 SaO2: 97 Resp Rate: 20 Blood Pressure: 112/76 Temperature: 37.1 C - RESPIRATORY Respiratory Status: Respiratory Rate WNL, Airway Patent, O2 Saturation Stable - CARDIOVASCULAR CV Status: Pulse Rate WNL, Blood Pressure Stable - GASTROINTESTINAL GI Status: No Symptoms - PAIN Pain Score: 0 Free Text/Narrative:: Doing well, will discharge to floor in good condition. - POST OP HYDRATION Hydration Status: Adequate & Stable
--- NOTE | 2017-06-19 00:33 | OR ---
SURGEON: NORA YUEN MD DATE OF PROCEDURE: 06/18/2017 PREOPERATIVE DIAGNOSIS: Impacted food bolus in esophagus. POSTOPERATIVE DIAGNOSIS: Impacted food bolus in esophagus. PROCEDURE PERFORMED: Diagnostic esophagogastroduodenoscopy with removal of impacted food bolus. ANESTHESIA: General endotracheal anesthesia. INSTRUMENT USED: Olympus endoscope. FINDINGS: Impacted piece of meat at 40 cm just above the GE junction. Small hiatal hernia. 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 Unable to transverse scope past the GE junction due to this stricture. COMPLICATIONS: None. INDICATIONS: The patient is an 87-year-old male who was at a [employer] this afternoon when he ate a large piece of chicken which became stuck. The patient has a history of dysphagia with frequent esophageal food bolus obstructions. The patient has presented to the emergency room several times before and was given glucagon with good passage of the obstruction. He was given glucagon in the ED today and was unable to pass the food bolus. The patient has chronic GERD and was previously scoped. He was found to have a small hiatal hernia and a Schatzki's ring. He is on omeprazole daily. Given the obstruction, the decision was made to perform a diagnostic EGD with removal of the food bolus. We discussed the procedure as well as the expected perioperative course. We discussed the risks, including bleeding, infection, or perforation. The patient verbalized understanding and wishes to proceed. PROCEDURE IN DETAIL: The patient was brought into the OR suite and placed on the OR table in a beach chair position. A time-out was completed verifying the patient's name, age, date of , allergies, and procedure to be performed. General endotracheal anesthesia was induced. A bite block was placed in the patient's mouth. The endoscope was passed into the patient's mouth and guided under direct visualization into the distal esophagus. At 40 cm, a large piece of meat was encountered. This was removed using a tri prong grasper. Two large pieces of meat were removed from the esophagus. I then inspected the GE junction. There was a large amount of inflammation and irregularity right at the GE junction. Nothing that appeared frankly malignant. I attempted to pass my scope past this area and was unable to do so safely. The patient currently is on aspirin and has a slightly decreased platelet count. The decision was made not to take any biopsies at this time or attempt any dilation. The scope was removed from the patient and the procedure terminated. The patient was transferred to the PACU in stable condition. GUILLERMO MURRAY /[id number]
[2017-06-19 01:57] VITALS: BP 148/85
--- NOTE | 2017-06-19 07:15 | PCM48HPAN ---
Post Anesthesia Note - EVALUATION WITHIN 48HRS OF ANESTHETIC Vital Signs in Normal Range: Yes Patient Participated in Evaluation: Yes Respiratory Function Stable: Yes Airway Patent: Yes Cardiovascular Function Stable: Yes Hydration Status Stable: Yes Pain Control Satisfactory: Yes Nausea and Vomiting Control Satisfactory: Yes Mental Status Recovered: Yes - COMMENTS/OBSERVATIONS Free Text/Narrative:: Stable. Discharged in good condition.
== END 2017-06-19 00:05 | disposition home or self-care (01) ==
LOC: MW.ED 17:53 → MW.SDS 20:47 → MW.MS 20:47 → MW.SDS 20:52
PROVIDERS: ATTEND Surgery
DX: T18.128A Food in esophagus causing other injury, initial encounter (principal); K44.9 Diaphragmatic hernia without obstruction or gangrene; K21.9 Gastro-esophageal reflux disease without esophagitis; I10 Essential (primary) hypertension; E78.00 Pure hypercholesterolemia, unspecified; F02.80 Dementia in other diseases classified elsewhere, unspecified severity, without behavioral disturbance, psychotic disturbance, mood disturbance, and anxiety; G31.83 Neurocognitive disorder with Lewy bodies; Z79.82 Long term (current) use of aspirin; Z79.899 Other long term (current) drug therapy; Z98.890 Other specified postprocedural states
CPT/HCPCS: 43247; 80048; 85027; 93005; 96374; 96376; 99284; J1610; J2250; J2405; J3010; J7040; 00740; 99283; J2704